=== PATIENT | male | born 1995 | race African-American/Black ===

== ENCOUNTER → 2022-03-14 | Outpatient (CLI) | payer OTHER | LOC: M CARPUL 08:20 | DX: R06.00 Dyspnea, unspecified (principal); I10 Essential (primary) hypertension; K21.9 Gastro-esophageal reflux disease without esophagitis ==

== ENCOUNTER → 2022-05-03 | Outpatient (CLI) | payer OTHER | LOC: M RAD 06:28 | PROVIDERS: ATTEND Physician Assistant | DX: I10 Essential (primary) hypertension (principal) ==

== ENCOUNTER → 2022-05-05 | Outpatient (CLI) | payer OTHER | LOC: M PLAIMG 11:54 | PROVIDERS: ATTEND Physician Assistant | DX: R41.3 Other amnesia (principal) ==

== ENCOUNTER 2022-12-27 11:49 | Inpatient (IN) | payer OTHER ==
[2022-12-27 12:46] LABS: HEMATOCRIT 47.8 % (42.0-52.0); HEMOGLOBIN 15.6 g/dl (13.5-17.5); MEAN CORPUSCULAR HEMOGLOBIN 28.1 pg (27.0-33.0); MEAN CORPUSCULAR HGB CONC 32.6 g/dl (32.0-36.5); PLATELET COUNT, AUTOMATED 402 10^3/uL (150-450); RED BLOOD COUNT 5.56 10^6/uL (4.30-6.10); WHITE BLOOD COUNT 5.4 10^3/uL (4.0-10.0)
[2022-12-27 13:08] LABS: ETHYL ALCOHOL (ETHANOL) < 0.003 % (0.000-0.010)
[2022-12-27 13:10] LABS: ACETAMINOPHEN LEVEL < 2.0 UG/ML (10.0-20.0); ALBUMIN 4.2 G/DL (3.2-5.2); ALKALINE PHOSPHATASE 53 U/L (46-116); ALT/SGPT 16 U/L (7.0-40); AST/SGOT 14 U/L (<34); BILIRUBIN,DIRECT 0.1 MG/DL (<0.4); BILIRUBIN,TOTAL 0.4 MG/DL (0.3-1.2); BLOOD UREA NITROGEN 15 MG/DL (9-23); CALCIUM LEVEL 9.7 MG/DL (8.5-10.1); CARBON DIOXIDE LEVEL 27 MMOL/L (20-31); CHLORIDE LEVEL 102 MMOL/L (98-107); CREATININE FOR GFR 0.88 MG/DL (0.70-1.30); GLOMERULAR FILTRATION RATE > 60.0 (>60); GLUCOSE, FASTING 85 MG/DL (60-100); POTASSIUM SERUM 4.1 MMOL/L (3.5-5.1); SALICYLATE LEVEL < 3.0 MG/DL (<30); SODIUM LEVEL 137 MMOL/L (136-145)
[2022-12-27 13:31] LABS: AMPHETAMINES LEVEL URINE NEGATIVE (NEGATIVE)
[2022-12-27 13:32] LABS: BARBITURATES URINE NEGATIVE (NEGATIVE); BENZODIAZEPINES URINE NEGATIVE (NEGATIVE); CANNABINOIDS URINE NEGATIVE (NEGATIVE); COCAINE METABOLITE URINE NEGATIVE (NEGATIVE); METHADONE URINE NEGATIVE (NEGATIVE); OPIATES URINE NEGATIVE (NEGATIVE); PHENCYCLIDINE URINE NEGATIVE (NEGATIVE)
[2022-12-27] MEDS ORDERED: LOTR5CAP2 PO (15:37)
[2022-12-27] MEDS ORDERED: HYDR50TA70 PO (15:37)
[2022-12-27] MEDS ORDERED: TRAZ-252 PO (15:37)
[2022-12-27] MEDS ORDERED: BUPR-69 PO (15:37)
[2022-12-27] MEDS ORDERED: HOME MED LIST COMPLETE! XX SCH (15:45)
[2022-12-27] MEDS ORDERED: MED REC IN PROGRESS XX SCH (15:45)
[2022-12-27] MEDS ORDERED: diphenhydrAMINE 25MG CAP PO PRN (17:15)
[2022-12-27] MEDS ORDERED: IBUPROFEN 400MG TAB PO PRN (17:15)
[2022-12-27] MEDS ORDERED: MOM 30ML SUSPENSION UDC PO PRN (17:15)
[2022-12-27] MEDS ORDERED: MAALOX 30 ML SUSP *UDC PO PRN (17:15)
[2022-12-27] MEDS ORDERED: ACETAMINOPHEN TAB 650MG DOSE (2X325MG) PO PRN (17:15)
[2022-12-27 21:25] VITALS: BP 150/94; O2SAT 97
[2022-12-27] MEDS: traZODone 50 MG TAB PO PRN (21:36)
[2022-12-28 06:20] VITALS: BP 153/83; TEMP 97.8; O2SAT 100
[2022-12-28] MEDS ORDERED: hydrOXYzine 50 MG TAB PO PRN (10:40)
[2022-12-28] MEDS: buPROPion 100 MG TAB PO SCH ×2 (11:12→20:55)
[2022-12-28 16:37] VITALS: BP 144/82; TEMP 98.1; O2SAT 98
[2022-12-28] MEDS: traZODone 50 MG TAB PO PRN (20:54)
[2022-12-29 06:29] VITALS: BP 134/63; TEMP 97.8; O2SAT 100
[2022-12-29] MEDS ORDERED: BENAZEPRIL 5MG TAB PO SCH (09:00)
[2022-12-29 09:16] VITALS: BP 167/99
[2022-12-29] MEDS: buPROPion 100 MG TAB PO SCH (09:16)
== END 2022-12-29 12:34 | disposition home or self-care (01) | DRG 881 ==
LOC: M ED 11:49 → M ED INP 17:15 → M PSY 20:46
PROVIDERS: ADMIT Student in an Organized Health Care Education/Training Program; ATTEND Student in an Organized Health Care Education/Training Program
DX: F32.A Depression, unspecified (principal); R45.851 Suicidal ideations; F41.9 Anxiety disorder, unspecified; F10.10 Alcohol abuse, uncomplicated; F17.210 Nicotine dependence, cigarettes, uncomplicated; Z56.89 Other problems related to employment; Z79.899 Other long term (current) drug therapy; E66.9 Obesity, unspecified; H18.603 Keratoconus, unspecified, bilateral

== ENCOUNTER → 2023-04-04 | Outpatient (REF) | payer OTHER ==
[~2023-04-04] MED LIST: BUPR-69 PO; HYDR50TA70 PO; LOTR5CAP2 PO; TRAZ-252 PO
[2023-04-04 14:09] LABS: SEMEN APPEARANCE OPAQUE (OPAQUE)
[2023-04-04 14:10] LABS: SEMEN VISCOSITY LIQUID (LIQUID); SPERM CONCENTRATION 74.1 M/ml (>=15.0); WBC CONCENTRATION <=1 M/ml (<=1 M/ml)
== END ==
LOC: M LAB REF 13:20
PROVIDERS: ATTEND Student in an Organized Health Care Education/Training Program
DX: Z98.52 Vasectomy status (principal)